=== PATIENT | male | born 1995 | race Caucasian/White ===

== ENCOUNTER 2017-08-14 12:26 | Emergency (ER) | payer OTHER ==
[~2017-08-14] VITALS: Ht 177.8 cm; Wt 94.0 kg
[2017-08-14 12:28] VITALS: BP 175/85; PULSE 99; RESP 18; TEMP 99.4; O2SAT 99
[2017-08-14] MEDS ORDERED: IBUP1TAB7 PO (12:43)
[2017-08-14] MEDS ORDERED: TRAM50TA PO (12:43)
--- NOTE | 2017-08-14 12:48 | PD ---
HPI Chief Complaint: Injury Time Seen by Provider: 12:31 Travel History International Travel<30 days: No Contact w/Intl Traveler<30days: No Traveled to known affect area: No History of Present Illness HPI 21-year-old male that presents to the ED for evaluation of left shoulder pain after injury. Patient reports this happened on Tuesday. 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 Per patient he was lifting a window when he felt a pop on his left shoulder. Per patient he was able to put the window down and when he put his arm down he felt another pop. Per patient ever since his been having a lot of pain especially whenever he lifts his arm. He denies any prior injuries to this before. He denies any numbness, tingling, weakness. Able to move the wrist as well as the elbows bilaterally. Per patient pain is 8 out of 10 when he lifts the arm. Otherwise unremarkable. No other medical issues. PFSH Past Medical History Medical History: Denies Significant Hx Autoimmune Disease: No Cardiovascular Problems: Yes (Heart murmur) Developmental Delay: No Gastrointestinal Disorders: No Genitourinary: No Musculoskeletal: Yes (Back and shoulder problems) Neurologic: No (ADHD ) Psychiatric: Yes (ADHD) Respiratory: No Immunizations Current: Yes Influenza Vaccination: No ?: Not Past Surgical History Surgical History: No Previous Surgery Other Surgery: Yes (Knee, ankle, arm) Social History Alcohol Use: Yes (SOCIALLY) Tobacco Use: Yes (1PPD) Substance Use: No Allergies-Medications (Allergen,Severity, Reaction): Coded Allergies: No Known Allergies (Unverified Adverse Reaction, Unknown, 08/14/17) Reported Meds & Prescriptions Reported Meds & Active Scripts Active Tramadol (Tramadol HCl) 50 Mg Tab 50 Mg PO Q6H PRN Ibuprofen 800 Mg Tab 800 Mg PO Q6HR PRN Review of Systems Except as stated in HPI: all other systems reviewed are Neg Physical Exam Narrative GENERAL: SKIN: Warm and dry. HEAD: Atraumatic. Normocephalic. EYES: Pupils equal and round. No scleral icterus. No injection or drainage. ENT: No nasal bleeding or discharge. Mucous membranes pink and moist. NECK: Trachea midline. No JVD. CARDIOVASCULAR: Regular rate and rhythm. RESPIRATORY: No accessory muscle use. Clear to auscultation. Breath sounds equal bilaterally. GASTROINTESTINAL: Abdomen soft, non-tender, nondistended. Hepatic and splenic margins not palpable. MUSCULOSKELETAL: Extremities without clubbing, cyanosis, or edema. No obvious deformities. Patient has full range of motion of the upper and lower extremities bilaterally. Patient does have pain with abduction past 90 on the left shoulder and with internal and external rotation. Most of the pain is more when patient is abducting the arm. Patient is able to dribble has a lot of pain after 90. No obvious bony deformity noted. Otherwise patient has no pain. Full range of motion of the elbows bilaterally. Full range of motion of the fingers and hands bilaterally. 2+ pulses bilaterally. NEUROLOGICAL: Awake and alert. No obvious cranial nerve deficits. Motor grossly within normal limits. Five out of 5 muscle strength in the arms and legs. Normal speech. PSYCHIATRIC: Appropriate mood and affect; insight and judgment normal. Data Data Last Documented VS Vital Signs Date Time Temp Pulse Resp B/P (MAP) Pulse Ox O2 Delivery O2 Flow Rate FiO2 08/14/17 12:28 99.4 99 18 175/85 (115) 99 Orders Orders Shoulder, Complete (>2vws) (08/14/17 ) [facility] Medical Decision Making Medical Screen Exam Complete: Yes Emergency Medical Condition: Yes Medical Record Reviewed: Yes Interpretation(s) X-ray the left shoulder show no sign of bony injury. Differential Diagnosis Fracture versus dislocation versus abrasion versus rotator cuff injury Narrative Course 21-year-old male that presents to the ED for evaluation of pain to his left shoulder after injury while lifting heavy objects. X-ray was done and was negative for acute . From this time this appears to be likely rotator cuff injury. Pain only with range of motion. Patient will be given a sling. Given a prescription for tramadol and ibuprofen. Follow with orthopedic doctor. See ED worsening symptoms. Diagnosis Primary Impression: Rotator cuff injury Qualified Codes: S46.002A - Unspecified injury of muscle(s) and tendon(s) of the rotator cuff of left shoulder, initial encounter Referrals: Hadley Roque MD, Todd Andrew MD Patient Instructions: General Instructions Additional Instructions: Take medications as prescribed. Follow-up with ortho. See ED for any worsening symptoms. Do not drink or drive while taking pain medication. Apply ice or heat as needed for pain Med/Other Pt SpecificInfo: Prescription(s) given Scripts Tramadol (Tramadol) 50 Mg Tab 50 MG PO Q6H Y for PAIN, #14 TAB 0 Refills Prov: Steven Gaona MD 08/14/17 Ibuprofen (Ibuprofen) 800 Mg Tab 800 MG PO Q6HR Y for PAIN, #30 TAB 0 Refills Prov: Steven Gaona MD 08/14/17 Disposition: 01 DISCHARGE HOME Condition: Stable Jamie Roque Aug 14, 2017 12:48
--- NOTE | 2017-08-14 13:10 | RADRPT ---
EXAM DATE/TIME: 08/14/2017 12:48 [facility] COMPARISON: No previous studies available for comparison. INDICATIONS : Left shoulder pain with limited ROM after lifting heavy object MEDICAL HISTORY : None. SURGICAL HISTORY : None. ENCOUNTER: Initial ACUITY: 3 days PAIN SCORE: 9/10 LOCATION: Left shoulder FINDINGS: Multiple view examination of the left shoulder demonstrates no evidence of fracture or dislocation. The glenohumeral and acromioclavicular joints are maintained. There is normal range of motion betwee n internal and external rotation. Bony mineralization is normal. CONCLUSION: No acute disease. Everett Mcfadden MD on August 14, 2017 at 13:08 Board Certified Radiologist. This report was verified electronically.
== END 2017-08-14 13:08 | disposition home or self-care (01) ==
LOC: PHEFT 12:26
DX: S46.002A Unspecified injury of muscle(s) and tendon(s) of the rotator cuff of left shoulder, initial encounter (principal); X50.0XXA Overexertion from strenuous movement or load, initial encounter; Y99.0 Civilian activity done for income or pay; Z72.0 Tobacco use
CPT/HCPCS: 73030; 99283